=== PATIENT | male | born 2005 | race Caucasian/White ===

== ENCOUNTER 2023-07-26 16:34 | Inpatient (IN) ==
--- NOTE | 2023-07-26 16:42 | ED Triage Note ---
Date of Service July 26, 2023 Provider in Triage Author: Rikki Rucker History of Present Illness This patient was briefly evaluated while in triage. An abbreviated physical exam was performed. This patient is a 18-year-old Male who presents to the ED for evaluation of right lower quadrant abdominal pain. Pain started Tuesday evening. Temperature just prior to arrival was 101 F. Patient had a right inguinal herniorrhaphy performed approximate [address] Turner. Patient reports mild nausea without vomiting. He denies any pain radiating into the back. Patient currently rates his discomfort a 7 out of 10. Patient denies any urinary symptoms, but reports that he is dehydrated because of no appetite. Physical Exam CONSTITUTIONAL: Healthy and well nourished. HEENT: No scleral icterus or conjunctival injection. RESPIRATORY: Clear to auscultation bilaterally with no wheezing, crackles, rhonchi or stridor. CARDIOVASCULAR: Regular rate and rhythm with no murmurs, rubs or gallops. GASTROINTESTINAL: Bowel sounds present in all quadrants. Patient has tenderness to palpation in the right lower quadrant. Negative CVA tenderness. INTEGUMENTARY: No rash or other significant dermatologic conditions noted. HEMATOLOGIC: No ecchymosis or petechiae. PSYCHIATRIC: Positive affect. NEUROLOGIC: No focal neurologic deficits noted. Initial orders for labs and / or imaging were placed and patient was placed in the waiting area until a bed is available. Please see further documentation for the full ED course.
--- NOTE | 2023-07-26 17:05 | Emergency Department Note ---
Impression & Plan Sepsis, Intra-abdominal abscess, Post-operative infection ED Provider Note NAME: PARRIS SHAFER AGE: 18 SEX: M : 2005 ARRIVES VIA: Walk-In INFORMANT: Patient ED PROVIDER(S): Tommy Artis DO CHIEF COMPLAINT: abdominal pain HPI: Patient is a 18-year-old male who presents to ER following a right inguinal hernia repair performed about 5 weeks ago here at [facility]. He was seen as he started having pain in his right lower quadrant Tuesday. He notes the redness started today. They referred him over as they are concerned that this is infected. He notes he does have some nausea and has not been wanting to eat or drink for the past several days/week. Has been having fevers. No other exacerbating or remitting factors. ADDITIONAL HISTORY OBTAINED: Per HPI Chronic Medical/Social Conditions Affecting Care: Per HPI PAST MEDICAL HISTORY:See Below PAST SURGICAL HISTORY:See Below FAMILY HISTORY:See Below SOCIAL HISTORY:See Below HOME MEDICATIONS:See Below ALLERGIES:See Below VITALS:See Below PHYSICAL EXAMINATION: GENERAL: Sitting up in bed, alert, well appearing, well nourished, no distress, non-toxic EYE EXAM: normal conjunctiva. OROPHARYNX: mucous membranes are moist NECK: supple, no nuchal rigidity, no adenopathy, non-tender LUNGS: Clear to auscultation. Normal chest wall mechanics HEART: no murmurs, S1 normal and S2 normal ABDOMEN: abdomen soft, tender palpation of the right mid to right lower quadrant with surrounding erythema in the right groin, normo-active bowel sounds, no masses, no rebound or guarding. UPPER EXTREMITIES: upper extremities are grossly normal. LOWER EXTREMITIES: No pitting edema. NEURO EXAM: Normal sensorium, cranial nerves II-XII grossly intact, normal speech, no gross weakness of arms, no gross weakness of legs. MEDICAL DECISION MAKING: Patient 18-year-old male postop for right inguinal hernia performed about 5 weeks ago here at [facility]. IV was established blood work was obtained. He was referred in from general surgery outpatient for worsening right lower quadrant abdominal pain and was febrile and tachycardic. I discussed the case with Dr. Eason he was sending the patient in. Labs showed leukocytosis of 14,000. No significant anemia. BMP with mild hyponatremia 133. LFTs bilirubin was unremarkable. Troponin was at 98 which I favor secondary to the sepsis. Pro-Wai at 1. UA was clean. CT abdomen pelvis showed a right lower quadrant abscess. Patient was given IV fluids and Zosyn. Discussed with Dr. Turner to evaluate the patient at bedside admit him to his service. Patient was also given oral Tylenol. Troponin came back elevated and following admission. Do favor this secondary to sepsis. EKG was obtained as patient was already on the floor I did order this and spoke with charge nurse to discuss with the floor nurse to have this obtained. Consults/Care Managements Discussions: Per [facility] Triage Nursing notes reviewed. Limited review of prior medical records performed Vital Signs: reviewed and remarkable for tachy and febrile Differential diagnosis: Differential diagnosis includes etiologies such as sepsis, UTI, pneumonia, metabolic, electrolyte abnormalities, cardiac sources, intracerebral event, toxicologic, neurological, as well as others were entertained. ER treatment provided: See below Diagnostics interpreted by me include EKG and cardiac monitoring as listed below: -Cardiac Monitoring: An order was placed for continuous cardiac monitoring. The monitor shows a rate of 101 with sinus rhythm. -ECG: Sinus rhythm rate 81 Normal axis No PVCs QTc 432 -Laboratory studies:Interpreted by me as stated above in MDM and shown below. Imaging studies: Xrays: As interpreted by me:none CTs show: CT abdomen pelvis shows Procedures:none Critical Care: None Past Med/Surg History Medical History (Updated 07/26/23 @ 21:47 by Tommy Artis DO) Abscess, intra-abdominal, postoperative Reducible right inguinal hernia Surgical History (Updated 07/26/23 @ 18:05 by Jeffrey Turner DO, SHAYLEE) H/O right inguinal hernia repair (06/22/23) Robotic Assisted Laparoscopic Right Inguinal Hernia Repair - Jeffrey Turner DO, SHAYLEE [place] teeth extracted History of repair of ACL Family History Aunt Breast cancer Aunt Breast cancer Other Cancer Social History Smoking Status: Never smoker Second Hand Exposure: No; Do You Dip or Chew Tobacco: No; Hx Alcohol Use: Yes (nothing in past month) Hx Substance Use: No Preferred Language: Sri Lankan Communication Ability: Effective Boning Room Worker Required: No Beliefs That Will Affect Care: None marital status: Single Current Living Situation: Family and Other Current Living Situation Comment: 3 roommates during school year, will be staying w/ parents for holidays current occupational status: student How many Children do You have: 0 Feels Safe at Home: Yes Diet: regular during the past year weight has: remained stable Assistive Devices: Contacts and Glasses Allergies Allergies Allergy/AdvReac Type Severity Reaction Status Date / Time No Known Allergies Allergy Verified 07/26/23 16:42 Home Meds Home Medications Medication Instructions Recorded Confirmed No Known Home Medications 07/05/23 07/26/23 Results & Data (ED) Vital Signs Vital Signs - 24 hr 07/26/23 16:39 07/26/23 18:00 07/26/23 18:00 Temperature 38.1 C H Temperature Source Temporal Artery Scan Pulse Rate 106 H Pulse Rate [Apical] 96 H Respiratory Rate 16 22 Respiratory Effort / Characteristics Non-Labored Spontaneous Non-Labored Spontaneous Respiratory Depth Normal Normal Respiratory Pattern Regular Blood Pressure 123/80 Blood Pressure [Right Arm] 124/71 Blood Pressure Mean 94 Blood Pressure Mean [Right Arm] 88 Blood Pressure Position [Right Arm] Semi-fowlers Pulse Oximetry 98 95 95 Oxygen Delivery Method Room Air Room Air Room Air Sepsis Recent Fever Within 48 Hours Yes Sepsis New/Unexplained Change in Mental Status N/A Sepsis Action Taken by Nursing No Action Required Laboratory Data 07/26/23 17:07 07/26/23 17:07 Lab Results 07/26/23 07/26/23 Range/Units 16:13 17:07 WBC 14.93 H (4.8-10.8) K/ul RBC 4.88 (4.70-6.10) M/uL Hgb 13.3 L (14.0-18.0) g/dl Hct 39.1 L (42.0-52.0) % MCV 80.1 (80.0-100.0) fL MCH 27.3 (25.0-34.0) pg MCHC 34.0 (32.0-36.0) g/dL RDW Std Deviation 35.5 L (36.4-46.3) fL RDW Coeff of Ru 12.3 (11.5-14.5) % Plt Count 376 (130-400) K/uL MPV 9.1 L (9.4-12.4) fL Immature Gran % (Auto) 0.8 % Neut % (Auto) 75.0 % Lymph % (Auto) 12.1 % Hooker % (Auto) 11.7 % Eos % (Auto) 0.1 % Baso % (Auto) 0.3 % Neut # (Auto) 11.21 H (1.40-6.50) K/uL Lymph # (Auto) 1.80 (1.20-3.40) K/uL Hooker # (Auto) 1.75 H (0.11-0.59) K/uL Eos # (Auto) 0.01 (0.00-0.50) K/uL Baso # (Auto) 0.04 (0.00-0.20) K/uL Immature Gran # (Auto) 0.12 (0.01-0.20) K/uL Sodium 133 L (136-145) mmol/L Potassium 3.7 (3.5-5.1) mmol/L Chloride 95 L (98-107) mmol/L Carbon Dioxide 26 (21-32) mmol/L Anion Gap 12 H (3-11) BUN 12 (6-23) mg/dl Creatinine 1.23 (0.6-1.4) mg/dl Est Cr Clr Drug Dosing 110.6 ml/min Est GFR ( Amer) 97.3 ml/min Est GFR (Non-Af Amer) 84.0 ml/min BUN/Creatinine Ratio 9.8 L (10-20) Glucose 87 (70-99(Fasting)) mg/dl Lactate 0.9 (0.4-2.0) mmol/L Calcium 9.5 (8.6-10.3) mg/dl Magnesium 2.0 (1.7-2.4) mg/dl Total Bilirubin 0.7 (0.2-1.0) mg/dl Direct Bilirubin 0.1 (0-0.2) mg/dl AST 23 (13-39) U/L ALT 30 (7-52) U/L Alkaline Phosphatase 190 H (34-104) U/L Troponin I High Sens 98.0 H* (0-20) pg/ml Total Protein 8.0 (6.0-8.3) gm/dl Albumin 4.0 (3.4-5.0) gm/dl Procalcitonin 1.02 H (0-0.5) ng/ml Urine Color Yellow Urine Appearance Clear (Clear) Urine pH 6.0 (4.5-7.5) Ur Specific [place] > 1.045 H (1.000-1.030) Urine Protein Trace H (Negative) Urine Glucose (UA) Negative (Negative) Urine Ketones 2+ H (Negative) Urine Blood Negative (Negative) Urine Nitrite Negative (Negative) Urine Bilirubin Negative (Negative) Urine Urobilinogen Negative (Negative) Ur Leukocyte Esterase Negative (Negative) Urine WBC (Auto) 1-5 (0-5) /hpf Urine RBC (Auto) 0-4 (0-4) /hpf U Hyaline Cast (Auto) 0 (0-5) /lpf U Epithel Cells (Auto) 5-10 H (0-5) /lpf Urine Bacteria (Auto) Negative (Negative) Administered Medications Lactated Ringer's (Lr) 1,000 mls @ 150 mls/hr IV .Q6H40M [facility] Stop: 08/25/23 21:48 Last Admin: 07/26/23 22:11 Dose: 150 mls/hr Documented By: SUKUMAR Acetaminophen (Ofirmev) 1,000 mg in 100 mls @ 400 mls/hr IV Q8H PRN PRN Reason: Pain or Fever Stop: 07/29/23 21:48 Last Admin: 07/26/23 22:11 Dose: 400 mls/hr Documented By: SUKUMAR Discontinued Medications Acetaminophen (Acetaminophen 325 Mg Tab) 650 mg PO NOW STA Stop: 07/26/23 17:03 Last Admin: 07/26/23 17:31 Dose: 650 mg Documented By: CHRISTOPHER Piperacillin Sod/Tazobactam Sod (Zosyn) 4.5 gm in 100 mls @ 200 mls/hr IV NOW ONE Stop: 07/26/23 17:30 Last Infusion: 07/26/23 18:26 Dose: Infused Documented By: Admin: 07/26/23 17:43 Dose: 200 mls/hr Documented By: CHRISTOPHER Sodium Chloride (Nss) 1,000 mls @ 999 mls/hr IV .Q1H1M [facility] MARY Stop: 07/26/23 19:15 Last Infusion: 07/26/23 19:43 Dose: Infused Documented By: Admin: 07/26/23 18:41 Dose: 999 mls/hr Documented By: Infusion: 07/26/23 18:41 Dose: Infused Documented By: Admin: 07/26/23 17:43 Dose: 999 mls/hr Documented By: CHRISTOPHER Vancomycin HCl 2,000 mg/ (Sodium Chloride) 540 mls @ 200 mls/hr IV ONE ONE Stop: 07/26/23 21:56 Last Admin: 07/26/23 19:18 Dose: 200 mls/hr Documented By: MARGARET Ioversol (Optiray 320 500ml) 90 ml IV ONCE ONE Stop: 07/26/23 17:21 Last Admin: 07/26/23 17:20 Dose: 90 ml Documented By: ETHAN Morphine Sulfate (Morphine Sulfate 4 Mg/Ml 1 Ml Carp\Vial) 4 mg IV NOW STA Stop: 07/26/23 17:02 Last Admin: 07/26/23 18:11 Dose: Not Given Documented By: MARGARET Ondansetron HCl (Ondansetron Inj 2 Mg/Ml 2 Ml Vial) 4 mg IV NOW STA Stop: 07/26/23 17:02 Last Admin: 07/26/23 17:31 Dose: 4 mg Documented By: CHRISTOPHER Imaging Data Radiologist's Impression: Abdomen/Pelvis CT 07/26/23 16:[address] WITH IV CONTRAST CT DOSE: 1047.21 mGy.cm HISTORY: rlq abd pain post op infection TECHNIQUE: Multiaxial CT images of the abdomen and pelvis were performed following the use of intravenous contrast. A dose lowering technique was utilized adhering to the principles of ALARA. COMPARISON STUDY: None. FINDINGS: The lung bases are clear. No pneumoperitoneum. No pneumatosis. No acute fractures identified. The liver, gallbladder, pancreas, adrenal glands, and kidneys are unremarkable. No hydronephrosis. The spleen is enlarged measuring 18 cm in length. The main portal vein is patent. Normal caliber abdominal aorta. There is right common and external iliac lymphadenopathy with the dominant lymph node on image 243 measuring 2.2 cm. Trace pelvic free fluid is noted. No bowel wall thickening or obstruction. The visualized appendix is unremarkable. The tip is partially obscured. By report the patient is status post right inguinal hernia repair. There is edema within the right inguinal canal as well as edema within the right lower quadrant and right retroperitoneal space. This surrounds a thick-walled fluid collection within the right lower quadrant which measures 12 x 9 x 7 cm. This likely represents an abscess. This fluid collection results in mass effect and mild leftward displacement of the thick-walled bladder. Edema within the right abdominal wall musculature is also noted. IMPRESSION: 1. There is a 12 x 9 x 7 cm thick-walled fluid collection within the right lower quadrant with surrounding edema/inflammatory change. Therefore, this is highly suspicious for an abscess. 2. This suspected abscess results in mass effect and mild leftward deviation of the thick-walled bladder. 3. Right iliac lymphadenopathy. This may be reactive to the suspected abscess. 4. Mild splenomegaly. 5. Additional findings as described above. ACT 112: Negative or not required by law. Electronically signed by: Hiram Hanna M.D. 07/26/2023 5:37 PM Discharge Plan Visit Data Chief Complaint: Abdominal Pain Stated Complaint: RT ABDOMINAL PAIN, HAD SURGERY ABOUT 5 WEEKS AGO ED Provider: Tommy Artis Discharge Problem: Sepsis, Intra-abdominal abscess, Post-operative infection Patient Disposition: Admitted As Inpatient Discharge Instructions Interventions: ED Discharge Assessment Last Done: 07/26/23 21:32 Discharge Problem: Sepsis Qualifiers: Sepsis type: sepsis due to unspecified organism Sepsis acute organ dysfunction status: unspecified Qualified Code(s): A41.9 - Sepsis, unspecified organism Post-operative infection Qualifiers: Encounter type: initial encounter Postoperative infection type: unspecified type Qualified Code(s): T81.40XA - Infection following a procedure, unspecified, initial encounter
[2023-07-26] MEDS: OPTIRAY 320 500ml IV ONE ×2 (17:20→22:31)
[2023-07-26 17:28] LABS: Basophils # (auto) 0.04 K/uL (0.00-0.20); Basophils % (auto) 0.3 %; Eosinophils # (auto) 0.01 K/uL (0.00-0.50); Eosinophils % (auto) 0.1 %; Hematocrit (blood only) 39.1 % (42.0-52.0); Hemoglobin 13.3 g/dl (14.0-18.0); Immature Granulocytes # (auto) 0.12 K/uL (0.01-0.20); Immature Granulocytes % (auto) 0.8 %; Lymphocytes % (auto) 12.1 %; Mean Corpuscular Hemoglobin 27.3 pg (25.0-34.0); Mean Corpuscular Volume 80.1 fL (80.0-100.0); Mean Platelet Volume 9.1 fL (9.4-12.4); Monocytes # (auto) 1.75 K/uL (0.11-0.59); Monocytes % (auto) 11.7 %; Neutrophils # (auto) 11.21 K/uL (1.40-6.50); Platelet Count 376 K/uL (130-400); RDW Coefficient of Variation 12.3 % (11.5-14.5); RDW Standard Deviation 35.5 fL (36.4-46.3); Red Blood Count 4.88 M/uL (4.70-6.10); White Blood Count 14.93 K/ul (4.8-10.8)
[2023-07-26] MEDS: ONDANSETRON INJ 2 MG/ML 2 ML VIAL IV STA (17:31)
[2023-07-26] MEDS: ACETAMINOPHEN 325 MG TAB PO STA (17:31)
--- NOTE | 2023-07-26 17:39 | CT Scan Report ---
ABDOMEN AND PELVIS CT WITH IV CONTRAST CT DOSE: 1047.21 mGy.cm HISTORY: rlq abd pain post op infection TECHNIQUE: Multiaxial CT images of the abdomen and pelvis were performed following the use of intrave nous contrast. A dose lowering technique was utilized adhering to the principles of ALARA. COMPARISON STUDY: None. FINDINGS: The lung bases are clear. No pneumoperitoneum. No pneumatosis. No acute fractures identifie d. The liver, gallbladder, pancreas, adrenal glands, and kidneys are unremarkable. No hydronephrosis. The spleen is enlarged measuring 18 cm in length. The main portal vein is patent. Normal caliber abd ominal aorta. There is right common and external iliac lymphadenopathy with the dominant lymph node o n image 243 measuring 2.2 cm. Trace pelvic free fluid is noted. No bowel wall thickening or obstructi on. The visualized appendix is unremarkable. The tip is partially obscured. By report the patient is status post right inguinal hernia repair. There is edema within the right inguinal canal as well as e manjeet within the right lower quadrant and right retroperitoneal space. This surrounds a thick-walled f luid collection within the right lower quadrant which measures 12 x 9 x 7 cm. This likely represents an abscess. This fluid collection results in mass effect and mild leftward displacement of the thick- walled bladder. Edema within the right abdominal wall musculature is also noted. IMPRESSION: 1. There is a 12 x 9 x 7 cm thick-walled fluid collection within the right lower quadrant with surrou nding edema/inflammatory change. Therefore, this is highly suspicious for an abscess. 2. This suspected abscess results in mass effect and mild leftward deviation of the thick-walled blad swapnil. 3. Right iliac lymphadenopathy. This may be reactive to the suspected abscess. 4. Mild splenomegaly. 5. Additional findings as described above. ACT 112: Negative or not required by law. Electronically signed by: Hiram Hanna M.D. 07/26/2023 5:37 PM
[2023-07-26] MEDS: PIPERACILLIN/TAZOBACTAM 4.5 GM/100 ML BAG IV ONE (17:43)
[2023-07-26] MEDS: SODIUM CHLORIDE 0.9% 1,000 ML IV SCH (17:43)
[2023-07-26 17:45] LABS: BUN Creatinine Ratio 9.8 (10-20); Bilirubin Direct 0.1 mg/dl (0-0.2); Bilirubin,Total 0.7 mg/dl (0.2-1.0); Calcium 9.5 mg/dl (8.6-10.3); Creatinine Clr Calc Pharmacy 110.6 ml/min; Est GFR (African American) 97.3 ml/min; Potassium 3.7 mmol/L (3.5-5.1)
--- NOTE | 2023-07-26 18:07 | History & Physical Report ---
Date of Service July 26, 2023 Assessment & Plan (1) Abscess, intra-abdominal, postoperative: Plan: 5 weeks s/p robotic RIH, was doing well but now with suspected abscess. Will admit for abx and IR drainage, attempt to preserve mesh admit to med surg npo, ivf's, iv abx IR abscess drainage consult will likely need extended course of abx, possible ID consult will make npo after midnight in case needs or (2) H/O right inguinal hernia repair: History of Present Illness Primary Care Provider: NO PCP 18 y/o male s/p robotic right inguinal hernia repair on 22 Jun 2023, sent from clinic for concern for infection. He did well for first several weeks, until over the weekend he noticed some discomfort and swelling in right groin. Developed fevers and redness. Seen in ortho clinic, later in gen surg clinic and referred to ED. CT revealed fluid collection concerning for abscess. Had some fevers today and was febrile in ED. Allergies Allergy/AdvReac Type Severity Reaction Status Date / Time No Known Allergies Allergy Verified 07/26/23 16:42 Home Medications Medication Instructions Recorded Confirmed Type No Known Home Medications 07/05/23 07/26/23 History Past Med/Surg History Medical History (Updated 07/26/23 @ 18:05 by Jeffrey Turner DO, SHAYLEE) Abscess, intra-abdominal, postoperative Reducible right inguinal hernia Surgical History (Updated 07/26/23 @ 18:05 by Jeffrey Turner DO, SHAYLEE) H/O right inguinal hernia repair (06/22/23) Robotic Assisted Laparoscopic Right Inguinal Hernia Repair - Jeffrey Turner DO, SHAYLEE [place] teeth extracted History of repair of ACL Family History Aunt Breast cancer Aunt Breast cancer Other Cancer Social History Smoking Status: Never smoker Second Hand Exposure: No; Do You Dip or Chew Tobacco: No; Hx Alcohol Use: Yes (nothing in past month) Hx Substance Use: No Preferred Language: Slovenian Communication Ability: Effective Busboy Required: No Beliefs That Will Affect Care: None marital status: Single Current Living Situation: Family and Other Current Living Situation Comment: 3 roommates during school year, will be staying w/ parents for holidays current occupational status: student How many Children do You have: 0 Feels Safe at Home: Yes Diet: regular during the past year weight has: remained stable Assistive Devices: Contacts and Glasses Review of Systems Review of Systems: All systems reviewed & are unremarkable except as noted in HPI & below Physical Exam Constitutional: WD/WN, vitals as above Respiratory: normal respiratory effort, lungs clear to auscultation Cardiovascular: Rate/Rhythm: + tachycardic Gastrointestinal (Abdomen): Inspection/Auscultation: + abdominal surgical incision (no infection) Percussion/Palpation: + abdomen tender (right groin and lower abdomen) and abdomen soft; abdomen not rigid and no hernia erythema to RLQ Results & Data Results & Data Vital Signs (Past 12 Hours) Vital Signs Temp Pulse Resp BP Pulse Ox O2 Del Method 07/26/23 16:39 38.1 C H 106 H 16 123/80 98 Room Air Laboratory Results Laboratory Results - last 24 hr 07/26/23 17:07 WBC 14.93 H RBC 4.88 Hgb 13.3 L Hct 39.1 L MCV 80.1 MCH 27.3 MCHC 34.0 RDW Std Deviation 35.5 L RDW Coeff of Ru 12.3 Plt Count 376 MPV 9.1 L Immature Gran % (Auto) 0.8 Neut % (Auto) 75.0 Lymph % (Auto) 12.1 Coffee % (Auto) 11.7 Eos % (Auto) 0.1 Baso % (Auto) 0.3 Neut # (Auto) 11.21 H Lymph # (Auto) 1.80 Coffee # (Auto) 1.75 H Eos # (Auto) 0.01 Baso # (Auto) 0.04 Immature Gran # (Auto) 0.12 Sodium 133 L Potassium 3.7 Chloride 95 L Carbon Dioxide 26 Anion Gap 12 H BUN 12 Creatinine 1.23 Est Cr Clr Drug Dosing 110.6 Est GFR ( Amer) 97.3 Est GFR (Non-Af Amer) 84.0 BUN/Creatinine Ratio 9.8 L Glucose 87 Lactate 0.9 Calcium 9.5 Magnesium 2.0 Total Bilirubin 0.7 Direct Bilirubin 0.1 AST 23 ALT 30 Alkaline Phosphatase 190 H Troponin I High Sens 98.0 H* Total Protein 8.0 Albumin 4.0 Procalcitonin Pending Diagnostic Findings personally reviewed and interpreted the CT and agree with assessment of large fluid collection concerning for abscess. Difficult to tell if this is extra or intrapertoneal. ABDOMEN AND PELVIS CT WITH IV CONTRAST CT DOSE: 1047.21 mGy.cm HISTORY: rlq abd pain post op infection TECHNIQUE: Multiaxial CT images of the abdomen and pelvis were performed following the use of intravenous contrast. A dose lowering technique was utilized adhering to the principles of ALARA. COMPARISON STUDY: None. FINDINGS: The lung bases are clear. No pneumoperitoneum. No pneumatosis. No acute fractures identified. The liver, gallbladder, pancreas, adrenal glands, and kidneys are unremarkable. No hydronephrosis. The spleen is enlarged measuring 18 cm in length. The main portal vein is patent. Normal caliber abdominal aorta. There is right common and external iliac lymphadenopathy with the dominant lymph node on image 243 measuring 2.2 cm. Trace pelvic free fluid is noted. No bowel wall thickening or obstruction. The visualized appendix is unremarkable. The tip is partially obscured. By report the patient is status post right inguinal hernia repair. There is edema within the right inguinal c anal as well as edema within the right lower quadrant and right retroperitoneal space. This surrounds a thick-walled fluid collection within the right lower quadrant which measures 12 x 9 x 7 cm. This likely represents an abscess. This fluid collection results in mass effect and mild leftward displacement of the thick-walled bladder. Edema within the right abdominal wall musculature is also noted. IMPRESSION: 1. There is a 12 x 9 x 7 cm thick-walled fluid collection within the right lower quadrant with surrounding edema/inflammatory change. Therefore, this is highly suspicious for an abscess. 2. This suspected abscess results in mass effect and mild leftward deviation of the thick-walled bladder. 3. Right iliac lymphadenopathy. This may be reactive to the suspected abscess. 4. Mild splenomegaly. 5. Additional findings as described above. PG Care Time/CCT Total # of Minutes Spent Total Time Spent with Patient: Total time spent is greater than 50% in coordination of care (as documented) at patient's floor/unit and/or counseling patient: Coding Level of Care Code 24037 INT INP/OBS CARE 2/55MIN Diagnoses Abscess, intra-abdominal, postoperative T81.43XA H/O right inguinal hernia repair Z98.890; Z87.19
[2023-07-26] MEDS: MoRPHine SULFATE 4 MG/ML 1 ML CARP\\VIAL IV STA (18:11)
[2023-07-26 18:31] LABS: Appearance Urine Clear (Clear); Bacteria Urine Automated Negative (Negative); Bilirubin Urine Negative (Negative); Blood Urine Negative (Negative); Cast Urine Automated 0 /lpf (0-5); Color Urine Yellow; Glucose Urine UA Negative (Negative); Ketones Urine 2+ (Negative); Leukocyte Esterase Urine Negative (Negative); Nitrite Urine Negative (Negative); Protein Urine Trace (Negative); RBC Urine Automated 0-4 /hpf (0-4); Specific Gravity Urine > 1.045 (1.000-1.030); Urobilinogen Urine Negative (Negative)
[2023-07-26] MEDS: VANCOMYCIN HCL 2,000 MG in SODIUM CHLORIDE 0.9% 500 ML IV ONE (19:18)
[2023-07-26] MEDS ORDERED: MoRPHine SULFATE 4 MG/ML 1 ML CARP\\VIAL IV PRN (21:49)
[2023-07-26] MEDS ORDERED: diphenhydrAMINE 50 MG/ML VIAL IV PRN (21:49)
[2023-07-26] MEDS ORDERED: ONDANSETRON INJ 2 MG/ML 2 ML VIAL IV PRN (21:49)
[2023-07-26] MEDS ORDERED: VANCOMYCIN CONSULT ACTIVE PRN (21:49)
[2023-07-26] MEDS: ACETAMINOPHEN 1,000 MG/100 ML VIAL IV PRN (22:11)
[2023-07-26] MEDS: LACTATED RINGER'S 1,000 ML IV SCH (22:11)
[2023-07-26] MEDS: PIPERACILLIN/TAZOBACTAM 4.5 GM in DEXTROSE 5% MINI-B 100 ML IV SCH (23:55)
[2023-07-27] MEDS: VANCOMYCIN HCL 1,250 MG in SODIUM CHLORIDE 0.9% 250 ML IV SCH (03:04)
[2023-07-27] MEDS: MoRPHine SULFATE 2 MG/ML CARP IV PRN (04:00)
[2023-07-27 07:04] LABS: Creatinine Clr Calc Pharmacy 121.4 ml/min; Est GFR (African American) 107.8 ml/min; Est GFR (Non-African American) 93.1 ml/min
[2023-07-27 09:05] LABS: Basophils # (auto) 0.05 K/uL (0.00-0.20); Basophils % (auto) 0.3 %; Eosinophils # (auto) 0.03 K/uL (0.00-0.50); Eosinophils % (auto) 0.2 %; Hematocrit (blood only) 35.4 % (42.0-52.0); Hemoglobin 11.6 g/dl (14.0-18.0); Immature Granulocytes # (auto) 0.14 K/uL (0.01-0.20); Lymphocytes # (auto) 1.25 K/uL (1.20-3.40); Lymphocytes % (auto) 8.6 %; Mean Corpuscular Hemoglobin 26.9 pg (25.0-34.0); Mean Corpuscular Hgb Conc 32.8 g/dL (32.0-36.0); Mean Corpuscular Volume 82.1 fL (80.0-100.0); Mean Platelet Volume 9.2 fL (9.4-12.4); Monocytes # (auto) 1.87 K/uL (0.11-0.59); Monocytes % (auto) 12.8 %; Neutrophils # (auto) 11.26 K/uL (1.40-6.50); Neutrophils % (auto) 77.1 %; Platelet Count 332 K/uL (130-400); RDW Coefficient of Variation 12.5 % (11.5-14.5); RDW Standard Deviation 38.2 fL (36.4-46.3); Red Blood Count 4.31 M/uL (4.70-6.10)
[2023-07-27 09:21] LABS: Albumin Globulin Ratio 1.1 (0.9-2); Albumin Level 3.4 gm/dl (3.4-5.0); BUN Creatinine Ratio 8.4 (10-20); Bilirubin,Total 0.7 mg/dl (0.2-1.0); Calcium 8.9 mg/dl (8.6-10.3); Creatinine Clr Calc Pharmacy 128.2 ml/min; Est GFR (African American) 115.2 ml/min; Est GFR (Non-African American) 99.4 ml/min; Globulin 3.1 gm/dl (2.5-4.0); Potassium 3.9 mmol/L (3.5-5.1); Total Protein 6.5 gm/dl (6.0-8.3)
[2023-07-27 09:34] LABS: INR 1.2 (0.9-1.1); Prothrombin Time 13.5 Seconds (9.0-12.0)
--- NOTE | 2023-07-27 10:19 | Surgery Progress Note ---
Date of Service July 27, 2023 Assessment & Plan (1) Abscess, intra-abdominal, postoperative: Plan: 5 weeks s/p robotic RIH, was doing well but now with suspected abscess. IR drainage today. IR abscess drainage will likely need extended course of abx, possible ID consult will advance diet after drainage (2) H/O right inguinal hernia repair: Admission and Anticipated Discharge Date Admission Date: July 26, 2023 Subjective feels better with abx. Mom present Physical Exam Constitutional: WD/WN, vitals as above Respiratory: normal respiratory effort, lungs clear to auscultation Cardiovascular: RRR, no murmur, no edema Gastrointestinal (Abdomen): Inspection/Auscultation: + abdominal surgical incision (no infection) Percussion/Palpation: + abdomen tender (right groin and lower abdomen) and abdomen soft; abdomen not rigid and no hernia erythema to RLQ Results & Data Vital Signs (Past 12 Hours) Vital Signs Temp Pulse Resp BP Pulse Ox O2 Del Method 07/27/23 07:54 37.9 C H 91 H 18 106/57 L 92 Room Air PG Care Time/CCT Total # of Minutes Spent Total Time Spent with Patient: Total time spent is greater than 50% in coordination of care (as documented) at patient's floor/unit and/or counseling patient: Coding Level of Care Code 14586 SUB INP/OBS CARE 2/35MIN Diagnoses Abscess, intra-abdominal, postoperative T81.43XA H/O right inguinal hernia repair Z98.890; Z87.19
--- NOTE | 2023-07-27 10:49 | Electrocardiogram Report ---
Test Reason : Blood Pressure : / mmHG Vent. Rate : 081 BPM Atrial Rate : 081 BPM P-R Int : 172 ms QRS Dur : 094 ms QT Int : 372 ms P-R-T Axes : 076 102 062 degrees QTc Int : 432 ms Normal sinus rhythm Rightward axis Borderline ECG No previous ECGs available Confirmed by Indra Graves ([id number]) on 07/27/2023 10:49:04 AM Referred By: REFERRED SELF Confirmed By:Indra Graves
--- NOTE | 2023-07-27 10:51 | Pharmacy Report ---
Pharmacy PK ABX Note - Date of Service July 27, 2023 - Assessment and Plan Assessment 18 year old M receiving vancomycin and pip-tazo for treatment of intra-abdominal abscess s/p robotic right inguinal hernia repair 5 weeks ago. Blood cultures pending. Plan for IR drainage today. Plan Vancomycin * Loading dose: 2000 mg IV x 1 * Maintenance dose: 1250 mg IV every 8 hours * Regimen is predicted to achieve target AUC/DUANE of 400-600 mg/L.hr * Trough level ordered for 07/27 @ 0930 * predicted AUC/trough level at this time: 579/18 mcg/mL * Aggressive dosing selected based on patient age and renal function. Anticipate potential need for dose reduction therefore early level obtained. Pharmacy will continue to follow and will adjust dose/frequency as necessary. Thank you.
[2023-07-27] MEDS ORDERED: oxyCODONE HCL IR 5 MG TAB (IMMEDIATE RELEASE) PO PRN ×2 (15:19)
--- NOTE | 2023-07-27 15:46 | CT Scan Report ---
CT-guided right lower quadrant drain placement INDICATION: 12 cm right lower quadrant fluid collection PROCEDURE: Procedure and risks were explained. Informed consent was obtained. A final timeout was com pleted. The right lower quadrant was prepped and draped in sterile fashion. 1% buffered lidocaine was utilized for skin anesthesia. The patient received 50 mcg fentanyl IV. Utilizing CT guidance, an 18-gauge 10 cm Chiba needle was advanced into the right lower quadrant flui d collection. A 0.035 Amplatz wire was introduced through the entry needle and exchanged out for an 8 Pashto locking pigtail catheter. Approximately 20 mL of serous fluid was removed and sent to lab for analysis. The pigtail catheter was sutured to the skin with 2-0 silk and placed to suction bag drain age. Post-CT imaging demonstrated adequate catheter position without immediate complication. The samy ent tolerated the procedure well. Vital signs will be monitored on the floor. IMPRESSION: Right lower quadrant drain placement as detailed above. Performed, dictated, and signed by Regino Vieira PA-C; to be co-signed by Dr. Hiram Hanna. Electronically signed by: Hiram Hanna M.D. 07/27/2023 3:47 PM
[2023-07-27] MEDS: KETOROLAC TROMETHAMINE 15 MG/ML VIAL IV PRN (16:11)
[2023-07-27] MEDS: fentaNYL citrate PF 100 MCG/2 ML VIAL ONE (16:46)
--- NOTE | 2023-07-28 08:37 | Surgery Progress Note ---
Date of Service July 28, 2023 Assessment & Plan (1) Post-operative infection: Plan: Post operative robotic RIH 06/22/[address] Turner Had IR placed 07/27/23 draining clear red/francisco javier fluid Denies Fever/ Chills today, no sob, Cp Discomfort R inguinal area with movement tolerating reg diet AM labs not drawn yet, nurse to call lab VSS Microbiology /culture from IR specimen pending Continue IV antibiotics /Ambulation Will continue to monitor Admission and Anticipated Discharge Date Admission Date: July 26, 2023 Supervising Physician Co-Signing Physician Notes Patient seen examined, labs reviewed, agree with above. 5 weeks status post robotic right inguinal hernia repair admitted with pelvic fluid collection status post IR drainage yesterday. He is feeling much better with a little bit of soreness but no significant pain. He has not had a fever since the drainage. Afebrile with stable vitals, abdomen soft, minimally tender near drain site, no erythema. Drain serosanguineous. WBC 10 down from 14. Gram stain with multiple white blood cells, scant gram-positive cocci. Cultures no growth to date. We discussed options to include discharged home on oral antibiotics while we await culture results, versus keeping him in the hospital and IV antibiotics pending culture results. I am hopeful that this is a sterile collection and will resolve with drainage. At this point we agreed that the best option is to continue IV antibiotics and stay in the hospital while we await the final cultu re results. If the cultures are negative then he can go home on oral antibiotics with a drain in place and we will plan on repeating a scan and removing the drain in the clinic. If the cultures are positive then we would likely get an infectious disease consult and coordinate PICC line with IV antibiotics and home health. Family agreed to wait until the cultures come back before discharge from the hospital. Subjective Pt resting in bed, father at bedside Denies Fever/ Chills today, no sob, Cp Discomfort R inguinal area, IR drain tolerating reg diet Review of Systems Constitutional: no fever and no chills Eyes: + corrective lenses Ear, Nose, Mouth, Throat: no hearing loss Respiratory: no dyspnea Cardiovascular: no chest pain Gastrointestinal: + abdominal pain (RLQ IR drain ); no kayley sea and no vomiting Genitourinary: no dysuria Neurologic: no memory loss Psychiatric: no confusion Physical Exam Physical Exam: alert oriented pleasant Constitutional: well developed, cooperative and comfortable; no acute distress ENMT: external ear and nose normal, oropharynx normal Neck: trachea midline, no thyromegaly Respiratory: normal respiratory effort and able to speak in complete sentences; no respiratory distress Cardiovascular: Rate/Rhythm: + bradycardic (57) Gastrointestinal (Abdomen): Inspection/Auscultation: + abdominal surgical drain present (RLQ IR drain); abdomen not distended Percussion/Palpation: abdomen soft Musculoskeletal: no cyanosis or clubbing, extremities motor strength 5/5 Results & Data Vital Signs (Past 12 Hours) Vital Signs Temp Pulse Resp BP Pulse Ox O2 Del Method 07/28/23 07:08 98.2 F 57 L 18 130/73 97 Room Air 07/28/23 02:26 98.8 F 70 16 103/55 L 97 Room Air 07/27/23 23:07 99.1 F 88 18 113/70 96 Room Air PG Care Time/CCT Total # of Minutes Spent Total Time Spent with Patient: Total time spent is greater than 50% in coordination of care (as documented) at patient's floor/unit and/or counseling patient: Coding Level of Care Code 42819 SUB INP/OBS CARE 07/14MIN Diagnoses Post-operative infection T81.40XA Encounter type: initial encounter Postoperative infection type: unspecified type (1) Post-operative infection Encounter type: initial encounter Postoperative infection type: unspecified type Qualified Code(s): T81.40XA - Infection following a procedure, unspecified, initial encounter
[2023-07-28 09:00] LABS: Basophils # (auto) 0.04 K/uL (0.00-0.20); Basophils % (auto) 0.4 %; Eosinophils # (auto) 0.09 K/uL (0.00-0.50); Eosinophils % (auto) 0.9 %; Hemoglobin 11.9 g/dl (14.0-18.0); Immature Granulocytes # (auto) 0.11 K/uL (0.01-0.20); Immature Granulocytes % (auto) 1.1 %; Lymphocytes # (auto) 1.07 K/uL (1.20-3.40); Lymphocytes % (auto) 10.4 %; Mean Corpuscular Hgb Conc 32.2 g/dL (32.0-36.0); Mean Corpuscular Volume 83.9 fL (80.0-100.0); Mean Platelet Volume 9.3 fL (9.4-12.4); Monocytes # (auto) 0.93 K/uL (0.11-0.59); Neutrophils # (auto) 8.04 K/uL (1.40-6.50); Neutrophils % (auto) 78.2 %; Platelet Count 326 K/uL (130-400); RDW Coefficient of Variation 12.7 % (11.5-14.5); RDW Standard Deviation 38.6 fL (36.4-46.3); Red Blood Count 4.41 M/uL (4.70-6.10); White Blood Count 10.28 K/ul (4.8-10.8)
[2023-07-28] MEDS: VANCOMYCIN LEVEL ONE (09:06)
[2023-07-28 10:04] LABS: Albumin Globulin Ratio 1.1 (0.9-2); Albumin Level 3.3 gm/dl (3.4-5.0); BUN Creatinine Ratio 9.7 (10-20); Bilirubin,Total 0.5 mg/dl (0.2-1.0); Creatinine Clr Calc Pharmacy 133.2 ml/min; Est GFR (African American) 120.6 ml/min; Est GFR (Non-African American) 104.1 ml/min; Globulin 3.1 gm/dl (2.5-4.0); Potassium 3.7 mmol/L (3.5-5.1); Total Protein 6.4 gm/dl (6.0-8.3)
[2023-07-28] MEDS: VANCOMYCIN HCL 1,500 MG in SODIUM CHLORIDE 0.9% 500 ML IV SCH (16:14)
[2023-07-29 07:39] LABS: Basophils # (auto) 0.03 K/uL (0.00-0.20); Basophils % (auto) 0.3 %; Eosinophils # (auto) 0.13 K/uL (0.00-0.50); Eosinophils % (auto) 1.5 %; Hematocrit (blood only) 34.3 % (42.0-52.0); Hemoglobin 11.7 g/dl (14.0-18.0); Immature Granulocytes # (auto) 0.11 K/uL (0.01-0.20); Immature Granulocytes % (auto) 1.3 %; Lymphocytes # (auto) 1.72 K/uL (1.20-3.40); Lymphocytes % (auto) 19.7 %; Mean Corpuscular Hgb Conc 34.1 g/dL (32.0-36.0); Mean Corpuscular Volume 82.1 fL (80.0-100.0); Mean Platelet Volume 9.2 fL (9.4-12.4); Monocytes # (auto) 0.77 K/uL (0.11-0.59); Monocytes % (auto) 8.8 %; Neutrophils # (auto) 5.99 K/uL (1.40-6.50); Neutrophils % (auto) 68.4 %; Platelet Count 363 K/uL (130-400); RDW Coefficient of Variation 12.7 % (11.5-14.5); RDW Standard Deviation 38.3 fL (36.4-46.3); Red Blood Count 4.18 M/uL (4.70-6.10); White Blood Count 8.75 K/ul (4.8-10.8)
[2023-07-29 08:20] LABS: Albumin Level 3.2 gm/dl (3.4-5.0); BUN Creatinine Ratio 6.9 (10-20); Bilirubin,Total 0.3 mg/dl (0.2-1.0); Calcium 8.9 mg/dl (8.6-10.3); Creatinine Clr Calc Pharmacy 135.8 ml/min; Est GFR (African American) 123.5 ml/min; Est GFR (Non-African American) 106.6 ml/min; Globulin 3.1 gm/dl (2.5-4.0); Potassium 3.8 mmol/L (3.5-5.1); Total Protein 6.3 gm/dl (6.0-8.3)
--- NOTE | 2023-07-29 15:14 | Surgery Progress Note ---
Date of Service July 29, 2023 Assessment & Plan (1) Intra-abdominal abscess: Plan: Continues to improve send following IR drainage of fluid collection 5 weeks status post robotic right inguinal hernia repair. So far the fluid is sterile. Cytology returned with PMNs and some lymphocytes consistent with abscess. I did discuss this with the pathologist and he felt this was less likely a lymphocele, however he said in the presence of recent operation with mesh increased PMNs can be seen so this does not definitively indicate infection. His cultures are still pending but have no growth after 48 hours. The fluid does not appear infected. I also reviewed this with 1 of urologists and felt that it could represent a seroma/lymphocele, but that drainage should be the treatment of choice. Continue IR drain Agreed to continue IV antibiotics until final culture growth If cultures positive then would recommend ID consult and possible prolonged IV antibiotics versus oral antibiotics If cultures negative, then continue drain and continue on oral antibiotics Dr. Moore will be covering through the weekend and early next week (2) H/O right inguinal hernia repair: Admission and Anticipated Discharge Date Admission Date: July 26, 2023 Subjective 5 weeks status post robotic right inguinal hernia repair now with fluid co llection concerning for abscess. Status post IR drainage, feeling much better, vital signs normal. Physical Exam Constitutional: WD/WN, vitals as above Gastrointestinal (Abdomen): normal bowel sounds, soft, nontender, no hepatosplenomegaly Inspection/Auscultation: + abdominal surgical scar and + abdominal surgical drain present (Serosanguineous drainage, decreasing output) Results & Data Vital Signs (Past 12 Hours) Vital Signs Temp Pulse Resp BP Pulse Ox O2 Del Method 07/29/23 14:56 36.7 C 76 16 127/66 94 Room Air 07/29/23 14:40 36.8 C 92 H 18 122/70 95 Room Air 07/29/23 07:02 37 C 70 16 105/61 97 Room Air Laboratory Results Laboratory Results - last 24 hr 07/29/23 07:15 WBC 8.75 RBC 4.18 L Hgb 11.7 L Hct 34.3 L MCV 82.1 MCH 28.0 MCHC 34.1 RDW Std Deviation 38.3 RDW Coeff of Ru 12.7 Plt Count 363 MPV 9.2 L Immature Gran % (Auto) 1.3 Neut % (Auto) 68.4 Lymph % (Auto) 19.7 [place] % (Auto) 8.8 Eos % (Auto) 1.5 Baso % (Auto) 0.3 Neut # (Auto) 5.99 Lymph # (Auto) 1.72 [place] # (Auto) 0.77 H Eos # (Auto) 0.13 Baso # (Auto) 0.03 Immature Gran # (Auto) 0.11 Sodium 140 Potassium 3.8 Chloride 105 Carbon Dioxide 30 Anion Gap 5 BUN 7 Creatinine 1.01 Est Cr Clr Drug Dosing 135.8 Est GFR ( Amer) 123.5 Est GFR (Non-Af Amer) 106.6 BUN/Creatinine Ratio 6.9 L Glucose 97 Calcium 8.9 Total Bilirubin 0.3 AST 13 ALT 17 Alkaline Phosphatase 121 H Total Protein 6.3 Albumin 3.2 L Globulin 3.1 Albumin/Globulin Ratio 1.0 Diagnostic Findings Source: Groin OV Order: Ordered: Aer/Deborah Cult/Sm Comments: Comment right grin fluid; specimen to be collected in IR Procedure Result Verified Site Gram Stain Final 07/28/23-09 Gram Stain Result Many Polys Few Gram Positive Cocci Aero/Deborah Cult Preliminary 07/29/23-1027 No growth to date. FINAL DIAGNOSIS Soft tissue, right inguinal region (fine-needle aspiration of a right groin fluid collection): - Sheets of PMNs leukocytes lacking epithelial cells consistent with an abscess are seen. - No tumor seen. - Please see microscopic description. Screened by on at . at 0947. Clinical History Postoperative intra-abdominal abscess Tissues A. Inguinal Cyto.NG - RIGHT Gross Description 7 CC SLIGHTLY TURBID DIOR FLUID 1 DIFF QUIK SLIDE, 1 THIN PREP SLIDE, 1 CELL BLOCK Microscopic Description This fluid aspirated from the right inguinal region is prepared as a Papanicolaou stained ThinPrep, a Diff Quik stained direct smear and a cell block. The Diff Quik stained direct smear reveals many PMNs leukocytes and a few scattered histiocytes. A few scattered lymphocytes are also seen. An epithelial population is not seen. The slide is consistent with an abscess. The Papanicolaou stained ThinPrep also reveals innumerable PMNs leukocytes arranged singly and in small clusters. The cellblock reveals sheets of PMNs leukocytes. Once again, epithelial cells are not seen. Current Procedural Terminology [id number]*1 Non-Gynecological Pathology Report Page 1 of 1 PG Care Time/CCT Total # of Minutes Spent Total Time Spent with Patient: Total time spent is greater than 50% in coordination of care (as documented) at patient's floor/unit and/or counseling patient: Coding Level of Care Code 56981 SUB INP/OBS CARE 2/35MIN Diagnoses Intra-abdominal abscess K65.1 H/O right inguinal hernia repair Z98.890; Z87.19
--- NOTE | 2023-07-29 21:03 | Pharmacy Report ---
Pharmacy PK ABX Note - Date of Service July 29, 2023 - Assessment and Plan Laboratory Tests 07/29/23 07/29/23 07/29/23 07:15 07:15 14:11 Creatinine 1.01 Est Cr Clr Drug Dosing 135.8 Random Vancomycin 15.0 Assessment 18 year old M receiving vancomycin and pip-tazo for treatment of intra-abdominal abscess s/p robotic right inguinal hernia repair 5 weeks ago. Plan Vancomycin * Maintenance dose: 1500mg IV every 8 hours * Random level drawn 6 hours after his last dose. * Calculated AUC/trough level at this time: 500/13 mcg/mL * Continue Vanc 1500mg IV q8h. Pharmacy will continue to follow and will adjust dose/frequency as necessary. Thank you.
[2023-07-30 06:49] LABS: Hematocrit (blood only) 34.5 % (42.0-52.0); Hemoglobin 11.7 g/dl (14.0-18.0); Mean Corpuscular Hemoglobin 27.7 pg (25.0-34.0); Mean Corpuscular Hgb Conc 33.9 g/dL (32.0-36.0); Mean Corpuscular Volume 81.6 fL (80.0-100.0); Mean Platelet Volume 9.3 fL (9.4-12.4); Platelet Count 376 K/uL (130-400); RDW Coefficient of Variation 12.8 % (11.5-14.5); RDW Standard Deviation 38.2 fL (36.4-46.3); Red Blood Count 4.23 M/uL (4.70-6.10); White Blood Count 8.84 K/ul (4.8-10.8)
[2023-07-30 07:21] LABS: Basophils # (auto) 0.04 K/uL (0.00-0.20); Basophils % (auto) 0.5 %; Eosinophils # (auto) 0.15 K/uL (0.00-0.50); Eosinophils % (auto) 1.7 %; Immature Granulocytes # (auto) 0.12 K/uL (0.01-0.20); Immature Granulocytes % (auto) 1.4 %; Lymphocytes # (auto) 2.03 K/uL (1.20-3.40); Monocytes # (auto) 0.73 K/uL (0.11-0.59); Monocytes % (auto) 8.3 %; Neutrophils # (auto) 5.77 K/uL (1.40-6.50); Neutrophils % (auto) 65.1 %
[2023-07-30 07:41] LABS: BUN Creatinine Ratio 6.9 (10-20); Calcium 9.1 mg/dl (8.6-10.3); Creatinine Clr Calc Pharmacy 134.5 ml/min; Est GFR (African American) 122.1 ml/min; Est GFR (Non-African American) 105.3 ml/min
--- NOTE | 2023-07-30 13:02 | Surgery Progress Note ---
Date of Service July 30, 2023 Assessment & Plan (1) Intra-abdominal abscess: Plan: s/p robot R inguinal hernia repair on 06/22/23, complicated by post operative fluid collection drained by IR on 07/27 cultures remain no growth to date. cytology + PMNs WBC 8. vitals are stable pt afebrile IR drain with serosang drainage in bag, 200cc documented yesterday Continues on IV vanc/zosyn for now while awaiting final culture data Continue IR drain until output decreases and may consider repeat imaging prior to discharge OOB + reg diet As above. Clinically doing well. Drain looks serous today. No new issues. Awaiting cultures. Admission and Anticipated Discharge Date Admission Date: July 26, 2023 Subjective Patient reports feeling well. Mild soreness, but overall much improved. Tolerating diet. No other complaints Physical Exam Physical Exam: awake/alert, no distress Gastrointestinal (Abdomen): IR bag with serosang. output, 200cc noted yesterday. erythema improved Results & Data Vital Signs (Past 12 Hours) Vital Signs Temp Pulse Resp BP Pulse Ox O2 Del Method 07/30/23 07:00 98.2 F 53 L 16 139/80 96 Room Air PG Care Time/CCT Total # of Minutes Spent Total Time Spent with Patient: Total time spent is greater than 50% in coordination of care (as documented) at patient's floor/unit and/or counseling patient: Coding Level of Care Code 44646 SUB INP/OBS CARE 25MIN Diagnoses Intra-abdominal abscess K65.1
[2023-07-31 08:19] LABS: Basophils # (auto) 0.04 K/uL (0.00-0.20); Basophils % (auto) 0.4 %; Eosinophils # (auto) 0.16 K/uL (0.00-0.50); Eosinophils % (auto) 1.7 %; Hematocrit (blood only) 36.8 % (42.0-52.0); Immature Granulocytes # (auto) 0.12 K/uL (0.01-0.20); Immature Granulocytes % (auto) 1.2 %; Lymphocytes # (auto) 1.81 K/uL (1.20-3.40); Lymphocytes % (auto) 18.8 %; Mean Corpuscular Hemoglobin 27.2 pg (25.0-34.0); Mean Corpuscular Hgb Conc 32.6 g/dL (32.0-36.0); Mean Corpuscular Volume 83.4 fL (80.0-100.0); Mean Platelet Volume 9.5 fL (9.4-12.4); Monocytes # (auto) 0.88 K/uL (0.11-0.59); Monocytes % (auto) 9.1 %; Neutrophils # (auto) 6.62 K/uL (1.40-6.50); Neutrophils % (auto) 68.8 %; Platelet Count 427 K/uL (130-400); RDW Coefficient of Variation 12.5 % (11.5-14.5); RDW Standard Deviation 38.1 fL (36.4-46.3); Red Blood Count 4.41 M/uL (4.70-6.10); White Blood Count 9.63 K/ul (4.8-10.8)
[2023-07-31] MEDS: VANCOMYCIN LEVEL ONE (08:29)
--- NOTE | 2023-07-31 08:36 | Pharmacy Report ---
Pharmacy PK ABX Note - Date of Service July 31, 2023 - Assessment and Plan Assessment 07/31: Continues on vanc + zosyn for intra-abdominal infection. Day # 6 vancomycin. IR fluid culture (+) GPC. Blood cultures NGTD. Renal function stable. 07/29: 18 year old M receiving vancomycin and pip-tazo for treatment of intra- abdominal abscess s/p robotic right inguinal hernia repair 5 weeks ago. Plan Vancomycin * Current regimen: Vanc 1500mg IV q8h * Trough level this AM, 14.9mcg/mL (~7.5h level). Predicted to achieve ssAUC 525mg/L.hr - therapeutic. * Continue Vanc 1500mg IV q8h * Repeat level in ~ 48h if therapy continues Pharmacy will continue to follow and will adjust dose/frequency as necessary. Thank you.
[2023-07-31] MEDS: OPTIRAY 320 500ml IV ONE (10:51)
--- NOTE | 2023-07-31 11:09 | CT Scan Report ---
CT OF THE ABDOMEN AND PELVIS WITH CONTRAST CLINICAL HISTORY: evaluate R groin abscess, s/p IR drain COMPARISON STUDY: CT of the abdomen and pelvis July 26, 2023. TECHNIQUE: Following IV administration of Optiray, axial images of the abdomen and pelvis were obtain ed from the lung bases to the proximal femurs. Images were reviewed in the axial, sagittal, and coron al planes. IV contrast was administered without complication. Automated exposure control was utilize d for the study. A dose lowering technique was utilized adhering to the principles of ALARA. CT DOSE: 1233. mGy.cm FINDINGS: There are trace bilateral pleural effusions. No pneumatosis, free air or portal venous gas is present. Mild splenomegaly, unchanged. Liver, adrenal glands, kidneys and pancreas are unremarkabl e. There is no biliary or pancreatic ductal dilatation. Mild gallbladder wall thickening versus trace pericholecystic fluid. This may be related to mild volume overload. There is a small amount of ascit es within the pelvis. There is no evidence for a bowel obstruction. Major vasculature is patent. Righ t iliac chain lymphadenopathy is similar to prior CT. Interval placement of a percutaneous drain with in the right lower quadrant fluid collection. The rim-enhancing collection has moderately decreased i n size, now measuring 11 x 6.1 x 5.9 cm, previously 12 x 9 x 7 cm. The drain is well-positioned withi n the dependent aspect of the collection. Adjacent stranding and fluid is again noted. Mass effect up on the bladder has decreased. There is no soft tissue gas. No additional fluid collections are presen t. IMPRESSION: 1. Moderate decrease in size of the right lower quadrant abscess following percutaneous drain placeme nt. Adjacent stranding and fluid, similar to prior CT. 2. Right inguinal lymphadenopathy, likely reactive. 3. Trace bilateral pleural effusions and a small amount of fluid within the pelvis ACT 112: Negative or not required by law. Electronically signed by: Sunday Dale M.D. 07/31/2023 11:07 AM
--- NOTE | 2023-07-31 11:35 | Surgery Progress Note ---
Date of Service July 31, 2023 Assessment & Plan (1) Intra-abdominal abscess: Plan: s/p robot R inguinal hernia repair on 06/22/23, complicated by post operative fluid collection drained by IR on 07/27 cultures Final result of gram positive cocci WBC 9.6 vitals are stable, pt afebrile IR drain with serous drainage in bag 50ml , continue until seen by ID Continue on IV vanc/zosyn for now, consult placed to ID Repeat CT abd/pelvis placed Pt seen with Dr. Moore as above. clinically doing well. afebrile fluid grew gram + cocci. will obtain ID consult. repeat ct scan to eval fluid collection tomorrow. plan is to attempt d/c tomorrow if possible after ID rec's Admission and Anticipated Discharge Date Admission Date: July 26, 2023 Subjective Patient reports feeling ok R Groin soreness Tolerating diet Review of Systems Constitutional: no fever and no chills Eyes: + corrective lenses Ear, Nose, Mouth, Throat: no hearing loss Respiratory: no dyspnea Cardiovascular: no chest pain Gastrointestinal: + abdominal pain (RLQ IR drain ); no kayley sea and no vomiting Genitourinary: no dysuria Neurologic: no memory loss Psychiatric: no confusion Physical Exam Physical Exam: alert oriented pleasant Constitutional: well developed, cooperative and comfortable; no acute distress ENMT: external ear and nose normal, oropharynx normal Neck: trachea midline, no thyromegaly Respiratory: normal respiratory effort and able to speak in complete sentences; no respiratory distress Cardiovascular: Rate/Rhythm: + bradycardic (52) Gastrointestinal (Abdomen): Inspection/Auscultation: + abdominal surgical drain present (RLQ IR drain); abdomen not distended Percussion/Palpation: abdomen soft Musculoskeletal: no cyanosis or clubbing, extremities motor strength 5/5 Results & Data Vital Signs (Past 12 Hours) Vital Signs Temp Pulse Resp BP Pulse Ox O2 Del Method 07/31/23 07:00 98.1 F 52 L 16 129/72 96 Room Air PG Care Time/CCT Total # of Minutes Spent Total Time Spent with Patient: Total time spent is greater than 50% in coordination of care (as documented) at patient's floor/unit and/or counseling patient: Coding Level of Care Code 40759 Post Operative Follow-Up Diagnoses Intra-abdominal abscess K65.1
--- NOTE | 2023-07-31 13:45 | Communication Note ---
Date of Service: July 31, 2023 Spoke with Infectious disease answering service ( ) they reported that they will see the patient tomorrow.
[2023-08-01 07:34] LABS: Basophils # (auto) 0.05 K/uL (0.00-0.20); Basophils % (auto) 0.5 %; Eosinophils # (auto) 0.16 K/uL (0.00-0.50); Eosinophils % (auto) 1.5 %; Hematocrit (blood only) 36.1 % (42.0-52.0); Immature Granulocytes # (auto) 0.11 K/uL (0.01-0.20); Immature Granulocytes % (auto) 1.1 %; Lymphocytes # (auto) 1.56 K/uL (1.20-3.40); Lymphocytes % (auto) 15.1 %; Mean Corpuscular Hemoglobin 27.3 pg (25.0-34.0); Mean Corpuscular Hgb Conc 33.2 g/dL (32.0-36.0); Mean Corpuscular Volume 82.2 fL (80.0-100.0); Mean Platelet Volume 9.4 fL (9.4-12.4); Monocytes # (auto) 0.98 K/uL (0.11-0.59); Monocytes % (auto) 9.5 %; Neutrophils # (auto) 7.48 K/uL (1.40-6.50); Neutrophils % (auto) 72.3 %; Platelet Count 438 K/uL (130-400); RDW Coefficient of Variation 12.4 % (11.5-14.5); RDW Standard Deviation 37.5 fL (36.4-46.3); Red Blood Count 4.39 M/uL (4.70-6.10); White Blood Count 10.34 K/ul (4.8-10.8)
[2023-08-01 07:50] LABS: BUN Creatinine Ratio 6.1 (10-20); Calcium 9.6 mg/dl (8.6-10.3); Creatinine Clr Calc Pharmacy 120.3 ml/min; Est GFR (African American) 106.7 ml/min; Est GFR (Non-African American) 92.1 ml/min; Potassium 3.9 mmol/L (3.5-5.1)
--- NOTE | 2023-08-01 10:57 | Surgery Progress Note ---
Date of Service August 01, 2023 Assessment & Plan (1) Post-operative infection: Plan: Clinically doing okay. Awaiting infectious disease formal consultation today prior to discharge. Discussed with interventional radiology about doing a test on the catheter versus replacing the catheter. They are recommending patient obtain an ultrasound to evaluate for septations. We will [place] back around with the plan after his interventional radiology evaluation as well as infectious disease consult. (2) Intra-abdominal abscess: (3) H/O right inguinal hernia repair: Admission and Anticipated Discharge Date Admission Date: July 26, 2023 Subjective Patient seen. No change in his clinical status Physical Exam Physical Exam: Unchanged. Mild tenderness at surgical site. No erythema Drain output putting much out. Fluid is thin and serous in appearance francisco javier- colored Results & Data Vital Signs (Past 12 Hours) Vital Signs Temp Pulse Resp BP Pulse Ox O2 Del Method 08/01/23 07:37 37.0 C 67 18 122/65 96 Room Air PG Care Time/CCT Total # of Minutes Spent Total Time Spent with Patient: Total time spent is greater than 50% in coordination of care (as documented) at patient's floor/unit and/or counseling patient: Coding Level of Care Code 30923 Post Operative Follow-Up Diagnoses Post-operative infection T81.40XA Encounter type: initial encounter Postoperative infection type: unspecified type Intra-abdominal abscess K65.1 H/O right inguinal hernia repair Z98.890; Z87.19 (1) Post-operative infection Encounter type: initial encounter Postoperative infection type: unspecified type Qualified Code(s): T81.40XA - Infection following a procedure, unspecified, initial encounter
--- NOTE | 2023-08-01 14:18 | Ultrasound Report ---
US abdomen limited CLINICAL HISTORY: evaluate post operative abcess TECHNIQUE: Multiple real-time sonographic images of the right lower quadrant were obtained. Comparison: Comparison is made to CT abdomen pelvis to [address] abdomen pelvis 07/31/2023 FINDINGS: There is a complex fluid collection at the site of previously noted abscess. Minimal simple fluid com ponent remains. IMPRESSION: The abscess is noted and contains complex material, likely not amenable to continued catheter drainag e. ACT 112: Negative or not required by law. Electronically signed by: Wesley Pérez M.D. 08/01/2023 11:34 AM
[2023-08-01] MEDS: ACETAMINOPHEN 500 MG TAB PO PRN (14:49)
--- NOTE | 2023-08-01 16:43 | Infectious Disease Consult ---
Date of Consultation August 01, 2023 Assessment & Plan (1) Intra-abdominal abscess: (2) Post-operative infection: (3) H/O right inguinal hernia repair: (4) Infected hernioplasty mesh: Plan Alvaro Hensley is a 18-year-old man s/p robotic R inguinal hernia repair with mesh on 06/22/23, sent from clinic to [facility] on 07/26 with fevers and R groin swelling, with CT showing 12x9x7 cm abscess s/p IR drain on 07/27/23 with Cx + Peptoniphilus asaccharolyticus and G/s + GPCs (after <1d of vanc/pip-tazo). ID is consulted for intraabdominal abscess and inguinal mesh infection. Abd US on 08/01 showing complex fluid collection. Large complex RLQ fluid collection c/w intraabdominal abscess and therefore also inguinal mesh infection. Note that pt received vancomycin and pip-tazo for <24h prior to IR drainage on 07/27. With RLQ abscess cx only growing Peptoniphilus asaccharolyticus and Gram stain with few GPCs. No isolation of MRSA or Pseudomonas; <1d of broad abx would be unlikely to sterilize these organisms. Discussed with Dr. Moore of surgery that pts mesh is presumed to be infec marlyn. However, given the timing of this complication after his initial surgery, the surgical removal of the mesh is likely to be a complicated surgery. Also noting that abd US on 08/01 showing complex fluid collection that appears not amenable to further IR drainage. At the time of this note, the patient has been accepted for transfer and will be going to [facility]. With regards to source control, agree with evaluation at tertiary care center to evaluate whether pts mesh can be surgically removed. Infection of the inguinal mesh will be difficult if not impossible to treat with antibiotics alone, although sometimes salvage of the mesh is considered in surgically complex cases where surgery is deferred. If he were to have a mesh removal, he would likely have a surgical washout and further source control of this complex intraabdominal abscess and thus may not require a prolonged course of abx. For large intraabdominal fluid collections without source control (no surgical washout), typically recommend prolonged antibiotic therapy (at least another 3-4 weeks, with IV abx) with interval reimaging to ensure clinical improvement, and extension of IV abx as needed, and optimization of IR drainage as able. Can continue pip-tazo for now. If his mesh removal will be deferred, it would be reasonable to change his antibiotics to ceftriaxone 2g IV q24h (for 3-4 weeks minimum) and metronidazole 500 mg PO BID (for ~2 weeks) with repeat CT scan in ~3 weeks. ID Problem List: 1.Robotic R inguinal hernia repair on 06/22/23 c/b complex RLQ abscess, s/p IR drainage on 07/27/23 2.Inguinal mesh infection Recommendations: - Can continue pip-tazo for now - Recommend reevaluation with surgery and infectious diseases at [facility], where patient will be transferring. This includes the question of his mesh can be surgically removed and surgical washout of abscess for additional source control. - If his mesh removal will be deferred, it would be reasonable to change his antibiotics to ceftriaxone 2g IV q24h (for 3-4 weeks minimum) and metronidazole 500 mg PO BID (for ~2 weeks) with repeat CT, and extension of IV abx as needed. - Recommend weekly labs while on abx: CBC w/ diff, CMP Plan discussed with primary team. Patient will be discharging / transferring to [facility]. Thank you for letting ID participate in the care of this patient. ID will sign off at this time. If questions, please contact [facility] at [phone]. Anna Murrieta MD, S Infectious Diseases Consultation Information Consultation was provided via telemedicine using two-way real-time interactive telecommunication between the patient and the telemedicine provider. For the duration of the visit, the provider was performing the assessment from a different facility than the patient. This includesuse of bluetooth stethoscope forauscultationperformed by the telepresenter that the telemedicine provider can hear if described in the physical exam. [employer] contact information: Please call [facility] Call Center . (Phone Number For Physician Use Only) After establishing a telemedicine visit, patient was: Patient was verified with two unique identifiers, Patient/authorized rep acknowledged consent and understanding and Gave permission to continue telehealth session Time Spent with Patient: Initial => 75 min History of Present Illness Reason for Consultation: intraabdominal abscess and presumed inguinal mesh infection. Attending Physician: Jeffrey Turner DO, FACS History of Present Illness Alvaro Hensley is a 18-year-old man s/p robotic R inguinal hernia repair with mesh on 06/22/23, sent from clinic to [facility] on 07/26 with fevers and R groin swelling, with CT showing 12x9x7 cm abscess s/p IR drain on 07/27/23 with Cx + Peptoniphilus asaccharolyticus and G/s + GPCs (after <1d of vanc/pip-tazo). ID is consulted for intraabdominal abscess and presumed inguinal mesh infection. Abd US on 08/01 showing complex fluid collection. S/p robotic R inguinal hernia repair on 06/22/23. He did well for first several weeks, until over the weekend [employer] he noticed some discomfort and swelling in right groin. Developed fevers and redness. Seen in ortho clinic, later in gen surg clinic and referred to ED. In the ED, pt febrile (07/26 TMax of 38.6). CT revealed large 12x9x7 cm RLQ fluid collection c/w abscess. Started on vanc and pip-tazo. S/p IR drain on 07/27/23 with Cx + Peptoniphilus asaccharolyticus and G/s + GPCs (after <1d of vanc/pip- tazo). 07/26 BCx NGTD. No history of recent infections. Has not taken any abx prior to admission. At the time of evaluation, the pt feels improvement in pain and swelling. A 08/01 US abd showed complex abscess material that is unlikely amenable to additional IR drainage. Discussed with Dr. Moore of surgery that pts mesh is presumed to be involved but given the timing of this complication, a potential surgery for mesh removal may be complicated. At the time of this note, the patient has been accepted for transfer and will be going to [facility]. Allergies Allergy/AdvReac Type Severity Reaction Status Date / Time No Known Allergies Allergy Verified 07/26/23 16:42 Home Medications Medication Instructions Recorded Confirmed Type No Known Home Medications 07/05/23 07/26/23 History Patient History Medical History (Updated 08/01/23 @ 17:06 by Anna Murrieta MD) Abscess, intra-abdominal, postoperative Reducible right inguinal hernia Surgical History (Updated 07/26/23 @ 18:05 by Jeffrey Turner DO, SHAYLEE) H/O right inguinal hernia repair (06/22/23) Robotic Assisted Laparoscopic Right Inguinal Hernia Repair - Jeffrey Turner DO, FACS [place] teeth extracted History of repair of ACL Family History Aunt Breast cancer Aunt Breast cancer Other Cancer Social History Smoking Status: Never smoker Second Hand Exposure: No; Do You Dip or Chew Tobacco: No; Hx Alcohol Use: No Hx Substance Use: No Preferred Language: Paraguayan Communication Ability: Effective 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 General: Well-appearing, no acute distress HEENT: Conjunctivae non-injected, sclerae anicteric, MMM, OP clear. Resp: Respirations nonlabored. Abd: Nontender. IR drain in place, draining serous orange-colored fluid. Ext: Warm and well-perfused, no edema. Skin: Scattered flesh-colored papules on trunk and back, non-pruritic. Neuro: Alert & interactive. Grossly non-focal. Psych: Pleasant, appropriate. Results & Data Vital Signs (Past 12 Hours) Vital Signs Temp Pulse Resp BP Pulse Ox O2 Del Method 08/01/23 14:49 38.3 C H 77 16 102/57 L 96 Room Air 08/01/23 07:37 37.0 C 67 18 122/65 96 Room Air Diagnostic Findings Diagnostics: 08/01 US abd The abscess is noted and contains complex material, likely not amenable to continued catheter drainage. 07/30 CT A/P 1. Moderate decrease in size of the right lower quadrant abscess following percutaneous drain placement. Adjacent stranding and fluid, similar to prior CT. 2. Right inguinal lymphadenopathy, likely reactive. 2.Trace bilateral pleural effusions and a small amount of fluid within the pelvis 07/26 CT A/P 1. There is a 12 x 9 x 7 cm thick-walled fluid collection within the right lower quadrant with surrounding edema/inflammatory change. Therefore, this is highly suspicious for an abscess. 2. This suspected abscess results in mass effect and mild leftward deviation of the thick-walled bladder. 3. Right iliac lymphadenopathy. This may be reactive to the suspected abscess. 4. Mild splenomegaly. 5. Additional findings as described above. Micro Summary: 07/27 R groin fluid from IR: Peptoniphilus asaccharolyticus; stain with few GPCs 07/26 BCx x2: NGTD Antibiotic Summary: vancomycin (2/6 present) pip-tazo (2/6 present) (2) Post-operative infection Encounter type: initial encounter Postoperative infection type: unspecified type Qualified Code(s): T81.40XA - Infection following a procedure, unspecified, initial encounter
== END 2023-08-01 16:28 | disposition home or self-care (01) | DRG 863 ==
LOC: ED 16:34 → 3N 18:18